=== PATIENT | male | born 1955 | race African-American/Black ===

== ENCOUNTER 2016-08-15 00:08 | Emergency (ER) | payer OTHER ==
[~2016-08-15] VITALS: Ht 185.4 cm; Wt 108.9 kg
--- NOTE | ~2016-08-15 | EKG ---
[place] [address] [facility] [place] [address] ELECTROCARDIOGRAM REPORT Name: CODI JACKSONDENISSE Room #: DEP Kasey#: [id number] Admission: 08/15/16 Attend Phys: Discharge: 08/15/16 Date of : 57 Report #: [id number] THIS REPORT FOR: //name// [facility] ED Test Date: 2016-08-15 Test Time: 01:05:32 Pat Name: DEWAYNE JACKSON Department: Room: Gender: M Title Examiner: JOSE ALFREDO : 1955 Requested By: Claude Coon Order Number: [id number] MD: Hans Silva Measurements Intervals [place] Rate: 86 P: 50 [place]: 182 QRS: -41 QRSD: 98 T: 78 QT: 393 QTc: 470 Interpretive Statements Sinus rhythm Probable left atrial enlargement RSR' in V1 or V2, right VCD or RVH Inferior infarct, old Borderline ST elevation, anterior leads Compared to ECG 08/24/2014 12:25:09 No significant change was found Electronically Signed On 08-15-2016 14:04:49 CDT by Hans Silva [email or web address] <ELECTRONICALLY SIGNED> By: Hans Silva MD, [facility] 08/15/16 1404 0105 0105 Hans Silva MD, [facility] /EPI
[~2016-08-15 00:08] MED LIST: ACCUNEB SO1.25 MG/1 INH; ADVAIR HFA 230M12 GM; CLONIDINE0.1 PO; COREG6.25 MG PO; FELODIPINE ER10 MG; LISINOPRIL-HCT1 EAC2 PO; METFORMIN HCL500 MG PO; MOBIC15 MG; NEBULIZER MISCELL; PREDNISONE 20 M20 MG PO; PREDNISONE50 MG PO; PROAIR HFA8.5 GM; VENTOLIN HFA 1818 GM INH
[2016-08-15 01:29] LABS: CREATININE 1.1 mg/dL (0.7-1.3)
[2016-08-15 01:42] LABS: ABSOLUTE NEUTROPHILS 4.6 thou/uL (1.4-8.2); BASOPHILS 0.8 % (0.0-2.0); EOSINOPHILS 7.4 % (0.0-3.0); HEMOGLOBIN 13.8 gm/dL (14.0-18.0); LYMPHOCYTES 26.3 % (24.0-44.0); MCHC 34.5 g/dL (28.0-37.0); MCV 84.1 fL (80.0-100.0); MONOCYTES 8.1 % (1.0-8.0); PLATELET COUNT 240 thou/uL (150-400); POLYS 57.4 % (36.0-66.0); RBC 4.75 mil/uL (4.50-6.00); RDW 13.1 % (10.5-14.5)
[2016-08-15 01:43] LABS: MANUAL DIFF NO
[2016-08-15 01:47] LABS: CK-MB MASS 4.4 ng/mL (<0.5-3.6); MAGNESIUM 2.2 mg/dL (1.8-2.4); TOTAL BILIRUBIN 0.4 mg/dL (<0.1-1.0); TOTAL PROTEIN 7.2 g/dL (6.4-8.2); TROPONIN-I 0.05 ng/mL (<0.04-0.07)
[2016-08-15 01:57] LABS: APTT 27.5 Seconds (24.5-32.8); PROTIME 10.3 Seconds (9.3-11.4)
[2016-08-15] MEDS ORDERED: LISINOPRIL20 MG PO (02:05)
[2016-08-15] MEDS ORDERED: PREDNISONE 20 M20 MG PO (02:09)
[2016-08-15] MEDS ORDERED: CLONIDINE0.1 PO (02:09)
[2016-08-15] MEDS ORDERED: VENTOLIN HFA 1818 GM INH (02:09)
[2016-08-15 02:31] VITALS: BP 189/110
== END 2016-08-15 02:32 | disposition home or self-care (01) ==
LOC: ER 00:08
PROVIDERS: Emergency Medicine
DX: J45.901 Unspecified asthma with (acute) exacerbation (principal); I10 Essential (primary) hypertension; E11.9 Type 2 diabetes mellitus without complications; E78.00 Pure hypercholesterolemia, unspecified; I25.2 Old myocardial infarction; F17.210 Nicotine dependence, cigarettes, uncomplicated

== ENCOUNTER 2018-03-03 04:53 | Emergency (ER) | payer OTHER ==
[~2018-03-03] VITALS: Ht 193 cm; Wt 90.7 kg
[~2018-03-03 04:53] MED LIST changes: +LISINOPRIL20 MG PO
[2018-03-03] MEDS ORDERED: NORCO 5-325 TA1 EACH PO (06:20)
[2018-03-03] MEDS ORDERED: KEFLEX500 M1 PO (06:20)
[2018-03-03] MEDS ORDERED: VENTOLIN HFA INH8 GM INH (06:20)
[2018-03-03 06:29] VITALS: BP 188/101
== END 2018-03-03 06:30 | disposition home or self-care (01) ==
LOC: ER 04:53
DX: R04.0 Epistaxis (principal); I10 Essential (primary) hypertension; F17.210 Nicotine dependence, cigarettes, uncomplicated; E11.9 Type 2 diabetes mellitus without complications; E78.00 Pure hypercholesterolemia, unspecified; J45.909 Unspecified asthma, uncomplicated

== ENCOUNTER 2018-03-12 04:20 | Inpatient (IN) | payer OTHER ==
[2018-03-12] VITALS (8 sets, daily range): BP systolic 153–228; BP diastolic 99–134
[~2018-03-12] VITALS: Ht 185.4 cm; Wt 117.9 kg
--- NOTE | ~2018-03-12 | HC ---
[facility] [place] [address] CONSULTATION Name: DEWAYNE JACKSON Room #: 355-P [facility] IN ..#: [id number] Admission: 03/12/18 Attend Phys: Neftali Sethi MD Discharge: 03/14/18 Date of : 57 Report #: [id number] THIS REPORT FOR: //name// CC: Neftali Sethi DATE OF SERVICE: 03/14/2018 REASON FOR PRESENTATION: Shortness of breath. HISTORY OF PRESENT ILLNESS: A 63-year-old with past medical history of hypertension for the last 4 years. He tells me that his blood pressure has never been under control. He presented with shortness of breath, dyspnea on exertion. He tells me that his blood pressure has been on the high side most of the time; however, in the last month or so, he started to notice that his blood pressure readings are in the 200 range. He was admitted for further evaluation and management. He is not aware of any previous kidney problems. He is not aware of retinal bleed in the past. He is known to have hypertension, diabetes mellitus. He tells me that he had a mild heart attack. On presentation to the Emergency Room, his blood pressure was in the 200 range. He is not strict with his salt intake. PAST MEDICAL HISTORY; 1. Hypertension. 2. Hyperlipidemia. 3. Asthma. 4. Type 2 diabetes. MEDICATIONS: 1. Metformin. 2. Felodipine. 3. Lisinopril. ALLERGIES: None. REVIEW OF SYSTEMS: GENERAL: No fever or chills. CARDIOVASCULAR: Significant for dyspnea on exertion. PULMONARY: No cough or hemoptysis. GASTROINTESTINAL: No nausea or vomiting. GENITOURINARY: No frequency, no urgency. MUSCULOSKELETAL: No back pain. SOCIAL HISTORY: He continues to smoke. No drug or alcohol abuse. FAMILY HISTORY: Significant for hypertension. [facility] [address] [place] [address] CONSULTATION Name: DEWAYNE JACKSON Room #: 355-P [facility] IN [facility]#: [id number] Admission: 03/12/18 Attend Phys: Neftali Sethi MD Discharge: 03/14/18 Date of : 57 Report #: [id number] PHYSICAL EXAMINATION: GENERAL: Alert, oriented, pleasant. VITAL SIGNS: Blood pressure is 150/118. HEAD AND NECK: No jugular venous distention. CHEST: No crackles. CARDIOVASCULAR: No rub. ABDOMEN: Soft, nontender. LOWER EXTREMITIES: No edema. LABORATORY VALUES: Reviewed. Hemoglobin 12.6. Potassium was 3.3 yesterday and it is up to 3.7, creatinine is 1.7. No urine studies. DIAGNOSTIC DATA: Chest x-ray, borderline pulmonary venous congestions. CTA chest with no acute abnormality. ASSESSMENT AND PLAN: Hypertensive urgency. This is mainly related to salt intake. I agree with the changes in the medication to include an angiotensin converting enzyme inhibitor, thiazide diuretics and Aldactone. Expect this regimen to suffice for his blood pressure. We will send basic urinary studies. Salt restriction is of paramount to get his blood pressure under control. I doubt that he has a secondary hypertension. However, we will evaluate his Doppler of the renal arteries. We will also send renin aldosterone. I do not suspect this to be a pheochromocytoma. By: 1141 1634 Morris Mitchell MD /nt
[~2018-03-12 04:20] MED LIST changes: +KEFLEX500 M1 PO; +NORCO 5-325 TA1 EACH PO; +VENTOLIN HFA INH8 GM INH
[2018-03-12 04:57] LABS: ABSOLUTE NEUTROPHILS 8.6 thou/uL (1.4-8.2); BASOPHILS 0.7 % (0.0-2.0); EOSINOPHILS 2.5 % (0.0-3.0); HEMATOCRIT 38.6 % (42.0-52.0); HEMOGLOBIN 12.9 gm/dL (14.0-18.0); LYMPHOCYTES 9.6 % (24.0-44.0); MCH 28.1 pg (26.0-34.0); MCHC 33.5 g/dL (28.0-37.0); MCV 83.9 fL (80.0-100.0); MONOCYTES 5.2 % (1.0-8.0); PLATELET COUNT 274 thou/uL (150-400); RDW 13.9 % (10.5-14.5); WBC 10.5 thou/uL (4.0-11.0)
[2018-03-12 05:00] LABS: CALCIUM 9.3 mg/dL (8.5-10.1); CREATININE 1.2 mg/dL (0.7-1.3); POTASSIUM 3.7 mmol/L (3.5-5.1)
[2018-03-12 05:08] LABS: TROPONIN-I 0.2 ng/mL (<0.06)
--- NOTE | 2018-03-12 09:07 | NUR ---
PATIEN ADMITTED AT THIS TIME WITH HEART PALPITATION. HE IS ALERT ORIENTED X4. DENIES PAIN AT THIS TIME. RESP. NON LABORED. WILL CONT WITH PLAN OF CARE.
[2018-03-13] VITALS (7 sets, daily range): BP systolic 152–189; BP diastolic 102–134
--- NOTE | 2018-03-13 03:04 | NUR ---
P A&oX4, ABLE TO MAKE NEEDS KNOWN, AMBULATES WIH STEADY GAIT. PLEASANT AND COOERAIVE WITH NURSING CHRISTOPH. CONTINUES TO BE HYPERTENSIVE, MEDICATED PER PRN ORDERS WITH SLIGHT IMPROVEMENT. PT DENIES PAIN, DISCOMFORT, SOA, N/V. RESTING WELL THROUGHOUT THE NOC. REMAINS ON TELE MONITORING. WILL CONTINUE TO MONITOR PT.
[2018-03-13 05:32] LABS: CALCIUM 9.1 mg/dL (8.5-10.1); CREATININE 1.1 mg/dL (0.7-1.3); POTASSIUM 3.3 mmol/L (3.5-5.1)
[2018-03-13 05:36] LABS: HEMATOCRIT 38.1 % (42.0-52.0); HEMOGLOBIN 12.6 gm/dL (14.0-18.0); MCH 27.9 pg (26.0-34.0); MCHC 33.1 g/dL (28.0-37.0); MCV 84.2 fL (80.0-100.0); RBC 4.53 mil/uL (4.50-6.00); WBC 7.8 thou/uL (4.0-11.0)
--- NOTE | 2018-03-13 09:40 | 2DMMODE ---
[facility] [address] [place] [address] 2 D/M-MODE ECHOCARDIOGRAM Name: DEWAYNE JACKSON Room #: 355-P ADM IN ..#: [id number] Admission: 03/12/18 Attend Phys: Neftali Sethi MD Discharge: Date of : 57 Date of Service: 03/13/18 0939 Report #: [id number] THIS REPORT FOR: //name// APPROVED REPORT Study performed: 03/13/2018 07:35:46 EXAM: Comprehensive 2D, Doppler, and color-flow Echocardiogram Patient Location: Bedside Room #: 355 Status: routine BSA: 2.41 HR: 74 bpm BP: 154/102 mmHg Rhythm: NSR/PVCs Other Information Study Quality: Good Indications CHF, short of breath, palpitations, HTN urgency. Hx: HTN, DM, HLP, tob 2D Dimensions RVDd: 40.79 mm IVSd: 13.82 (7-11mm) LVOT Diam: 22.57 (18-24mm) LVDd: 54.80 mm PWd: 14.77 (7-11mm) Ascending Ao: 42.13 (22-36mm) LVDs: 43.22 (25-40mm) Aortic Root: 37.06 mm Volumes Left Atrial Volume (Systole) Single Plane 4CH: 91.49 mL Single Plane 2CH: 95.89 mL LA ESV Index: 41.00 mL/m2 Aortic Valve AoV Peak Primo.: 1.53 m/s AO Peak Gr.: 9.34 mmHg LVOT Max P.15 mmHg LVOT Max V: 1.13 m/s SEPIDEH Vmax: 2.97 cm2 Mitral Valve E/A Ratio: 1.2 MV Decel. Time: 147.94 ms [facility] [place] [address] [place] [address] 2 D/M-MODE ECHOCARDIOGRAM Name: MANUELCODIDENISSE Room #: 355-[facility] IN ..#: [id number] Admission: 03/12/18 Attend Phys: Neftali Sethi MD Discharge: Date of : 57 Date of Service: 03/13/18 0939 Report #: [id number] MV E Max Primo.: 0.97 m/s MV A Primo.: 0.80 m/s MV PHT: 42.90 ms IVRT: 87.66 ms Pulmonary Valve PV Peak Primo.: 1.00 m/s PV Peak Gr.: 3.99 mmHg Pulmonary Vein P Vein S: 0.33 m/s P Vein D: 0.50 m/s P Vein S/D Ratio: 0.66 Tricuspid Valve TR Peak Primo.: 2.98 m/s RAP Estimate: 5.00 mmHg TR Peak Gr.: 35.42 mmHg PA Pressure: 40.00 mmHg Left Ventricle The left ventricle is normal size. Moderate concentric left ventricular hypertrophy. Left ventricular systolic function is low-normal. LVEF is 50%. Moderate diastolic dysfunction is present (pseudonormal filling). Right Ventricle The right ventricle is normal size. The right ventricular systolic function is normal. Atria Left atrium is moderately dilated. Right atrium is mildly dilated. Aortic Valve Aortic valve is minimally calcified. Mild aortic regurgitation. There is no aortic valvular stenosis. Mitral Valve The mitral valve is normal in structure. Mild mitral regurgitation. Tricuspid Valve The tricuspid valve is normal in structure. Mild tricuspid regurgitation. Estimated PAP is 40mmHg. Pulmonic Valve The pulmonary valve is normal in structure. Trace pulmonic [facility] [address] [place] [address] 2 D/M-MODE ECHOCARDIOGRAM Name: DEWAYNE JACKSON Room #: 355-P [facility] IN ..#: [id number] Admission: 03/12/18 Attend Phys: Neftali Sethi MD Discharge: Date of : 57 Date of Service: 03/13/18 0939 Report #: [id number] regurgitation. Great Vessels The aortic root is normal in size. Ascending aorta is dilated at 4.2cm. IVC is normal in size and collapses >50% with inspiration. Pericardium There is no pericardial effusion. <Conclusion> The left ventricle is normal size. Moderate concentric left ventricular hypertrophy. Left ventricular systolic function is low-normal. Moderate diastolic dysfunction is present (pseudonormal filling). The right ventricle is normal size. Left atrium is moderately dilated. Mild aortic regurgitation. Mild mitral regurgitation. Mild tricuspid regurgitation. Estimated PAP is 40mmHg. Ascending aorta is dilated at 4.2cm. <ELECTRONICALLY SIGNED> By: Christopher Sheikh MD 03/13/18938 8 8 Christopher Sheikh MD /INF
--- NOTE | 2018-03-13 11:11 | EKG ---
[address] [place] [address] ELECTROCARDIOGRAM REPORT Name: DEWAYNE JACKSON Room #: 355-P ADM IN M.R.#: [id number] Admission: 03/12/18 Attend Phys: Neftali Sethi MD Discharge: Date of : 57 Report #: [id number] THIS REPORT FOR: //name// [facility] ED Test Date: 2018-03-12 Test Time: 04:22:34 Pat Name: DEWAYNE JACKSON Department: Room: 355 Gender: M Distillery Worker General: ANA PAULA : 1955 Requested By: Marc Amor Order Number: [id number] MD: Rishi Cedillo Measurements Intervals [place] Rate: 106 P: 49 [place]: 186 QRS: -28 QRSD: 91 T: 84 QT: 336 QTc: 447 Interpretive Statements Sinus tachycardia Ventricular premature complex Left ventricular hypertrophy Inferior infarct, old Baseline wander in lead(s) V1 Compared to ECG 08/15/2016 01:05:32 Ventricular premature complex(es) now present Left ventricular hypertrophy now present Sinus rhythm no longer present Right ventricular hypertrophy no longer present ST (T wave) deviation no longer present Myocardial infarct finding still present Electronically Signed On 03-13-2018 11:10:49 PLANT TENDER by Rishi Cedillo [email or web address] <ELECTRONICALLY SIGNED> By: Rishi Cedillo MD 03/13/18 1110 1 1 Rishi Cedillo MD /EPI
--- NOTE | 2018-03-13 11:15 | EKG ---
[address] [address] ELECTROCARDIOGRAM REPORT Name: DEWAYNE JACKSON Room #: 355-P ADM IN M.R.#: [id number] Admission: 03/12/18 Attend Phys: Neftali Sethi MD Discharge: Date of : 57 Report #: [id number] THIS REPORT FOR: //name// [facility] Test Date: 2018-03-12 Test Time: 09:34:21 Pat Name: DEWAYNE JACKSON Department: Room: 355 P Gender: M Websphere Administrator: LORETA : 1955 Requested By: Neftali Sethi Order Number: [id number] MD: Rishi Cedillo Measurements Intervals [place] Rate: 85 P: 44 PA: 192 QRS: -37 QRSD: 92 T: 86 QT: 367 QTc: 437 Interpretive Statements Sinus rhythm Frequent ventricular premature complexes Left ventricular hypertrophy with secondary t wave abnormalities. Inferior infarct, old Baseline wander in lead(s) I,III,aVL Compared to ECG 08/15/2016 01:05:32 Electronically Signed On 03-13-2018 11:15:35 DIMENSION WAREHOUSE SUPERVISOR by Rishi Cedillo [email or web address] <ELECTRONICALLY SIGNED> By: Rishi Cedillo MD 03/13/18 1115 0934 0934 Rishi Cedillo MD /EPI
--- NOTE | 2018-03-13 17:29 | NUR ---
PT DENIES CHEST PAIN OR SOA..BP REMAINS HIGH AND PRN AND SCHEDULED MEDS GIVEN PER EMAR...
[2018-03-14 03:36] VITALS: BP 168/115
[2018-03-14 05:49] LABS: CALCIUM 9.1 mg/dL (8.5-10.1); CREATININE 1.3 mg/dL (0.7-1.3); POTASSIUM 3.7 mmol/L (3.5-5.1)
[2018-03-14 07:15] VITALS: BP 152/118
--- NOTE | 2018-03-14 08:11 | NUR ---
PATIENT IS PROGRESSING SLOWLY IN CARE PLAN. VITAL SIGNS STABLE WITH PATIENT HAVING NO COMPLAINTS OF PAIN OR NAUSEA. PATIENT REMAINED FULLY ORIENTED THROUGHOUT SHIFT AND WAS ABLE TO CALL APPROPRIATELY FOR NEEDS. BLOOD PRESSURE REMAINED HIGH AND WAS TREATED WITH PRN MEDICATIONS TO REASONABLE AFFECT. UP AD ARTI INCIDENT FREE, PATIENT WAS ABLE TO AMBULATE AROUND THE ROOM WITHOUT INCIDENT AND APPEARED STRONG AND BALANCED IN GAIT. PATIENT IS ANXIOUS FOR DISCHARGE. CONTINUE PLAN OF CARE.
--- NOTE | 2018-03-14 09:18 | NUR ---
care of pt assumed this am @ ~ 0700. pt awake, sitting in bed reading messages on his phone. pt verbalized his desire to go home today due to the fact that it is [place]. He states that his son is coming up from [place] today to celebrate [place]. pt informed of renal doctor consult w/ US Renal Doppler scheduled for tomorrow 03/05.
[2018-03-14 12:37] LABS: URINE BILIRUBIN NEGATIVE (Negative); URINE BLOOD NEGATIVE (Negative); URINE CLARITY CLEAR; URINE COLOR YELLOW; URINE GLUCOSE-RANDOM* NEGATIVE (Negative); URINE KETONES NEGATIVE (Negative); URINE LEUKOCYTES NEGATIVE (Negative); URINE NITRITE NEGATIVE (Negative); URINE PROTEIN (DIPSTICK) NEGATIVE (Negative); URINE UROBILINOGEN 0.2 E.U./dl (0.2-1.0)
[2018-03-14 12:48] LABS: URINE CREATININE-RANDOM* 251.3 mg/dL; URINE PROTEIN-RANDOM* 22.3 mg/dL (<11.9)
[2018-03-14] MEDS ORDERED: CHLORTHALIDONE25 MG PO (14:22)
[2018-03-14] MEDS ORDERED: SPIRONOLACTONE25 M1 PO (14:22)
[2018-03-14] MEDS ORDERED: COREG6.25 MG PO (14:22)
--- NOTE | 2018-03-14 14:38 | NUR ---
care of pt assumed this am @ ~0700. pt noted to be very hopeful of a discharge today. pt noted his son's arrival from [place] for and his desire to not be in the hospital this holiday. pt has denied any chest pain, soa, palpitations, no n/v/d today. pt w/ a good to great appetite for food and fluids. pt up ad alberto w/ a steady, balanced and coordinated gait. dr. sandoval consulted today, he informed pt of his need to make his health care of his body and number one priority and to stop drinking alcohol, stop smoking, eat health (low salt, lean meats and portion control), follow up w/ pcp and himself and take the medication prescribed to him. pt was informed of all this w/ his and son at . pt verbalized an understanding of all dr. sandoval was requesting of him to help bring his blood pressure under control.
--- NOTE | 2018-03-14 14:53 | NUR ---
attempt to call pt's pharmacy to phone in scripts per CORI Calvillo request. [facility] [address] [place] closed today. 3 scripts given to pt w/ education information. iv access dc'd. tele dc'd. discharge packet gone through w/ pt. pt has collected his own belongings w/ family members at bs.
[2018-03-14 14:56] VITALS: BP 152/118
--- NOTE | 2018-03-15 15:48 | HC ---
[facility] [place] [address] CONSULTATION Name: DEWAYNE JACKSON Room #: 355-[facility] IN ..#: [id number] Admission: 03/12/18 Attend Phys: Neftali Sethi MD Discharge: 03/14/18 Date of : 57 Report #: [id number] THIS REPORT FOR: //name// CC: Neftali Sethi DATE OF SERVICE: 03/12/2018 REASON FOR CONSULTATION: 1. Hypertensive emergency. 2. Elevated troponin. HISTORY OF PRESENT ILLNESS: The patient is a 63-year-old male with history of hypertension, hyperlipidemia, asthma, diabetes and tobacco abuse who presents with symptoms of progressive worsening shortness of breath that has been going on for about a month. He has been meeting with his primary care who has been trying to optimize his blood pressures recently. He has noted some exertional dyspnea, especially when climbing stairs, but he denies any chest pain or chest tightness. He denies any PND or orthopnea. He denies presyncope or syncope. Today, he felt like his shortness of breath is getting worse, came into the Emergency Room and his blood pressure was 228/134. He received several medications and his blood pressure started to lower and his breathing improved. PAST MEDICAL HISTORY: As mentioned above. SOCIAL HISTORY: He quit smoking on Tuesday. FAMILY HISTORY: Noncontributory. ALLERGIES: None. MEDICATIONS: At home include lisinopril, Norvasc and metformin. REVIEW OF SYSTEMS: A 12-point review of systems was performed and was negative other than what I mentioned above. PHYSICAL EXAMINATION: VITAL SIGNS: Temperature 36.9, pulse 80, respiratory rate 24, blood pressure 167/110, sats 97%. GENERAL: No acute distress. HEENT: Oropharynx is clear. NECK: Supple, no thyromegaly. HEART: Regular rate and rhythm with no murmurs, rubs, or gallops. LUNGS: Clear to auscultation bilaterally. ABDOMEN: Soft, nontender, nondistended. EXTREMITIES: No clubbing, cyanosis, edema. [facility] [address] [place] [address] CONSULTATION Name: LELIA JACKSONBUNNY Room #: 355-P [facility] IN M.R.#: [id number] Admission: 03/12/18 Attend Phys: Neftali Sethi MD Discharge: 03/14/18 Date of : 57 Report #: [id number] NEUROLOGIC: Cranial nerves 2-12 are intact. LABORATORY DATA: A 12-lead EKG shows normal sinus rhythm with LVH and no ischemic changes. CBC: White count is 10, hemoglobin 12.9, platelets 274. D-dimer elevated at 1.5. Sodium 143, potassium 3.7, BUN 14, creatinine 1.2, glucose 134. Troponin is 0.2. ProBNP is 929. Chest x-ray shows no acute process. CT chest was negative for any acute process. ASSESSMENT AND PLAN: 1. Hypertensive emergency. 2. Elevated troponin secondary to hypertensive emergency. 3. Poorly controlled hypertension. 4. Diabetes. 5. Tobacco abuse. In summary, the patient is a 63-year-old presenting with hypertensive emergency. His elevated troponin is not due to acute coronary syndrome and it is likely related to his poorly controlled blood pressure. We will optimize his blood pressure. I will increase his lisinopril to 40 daily. I will start him on hydrochlorothiazide. He was also started on carvedilol and we will continue with his Norvasc as well. We will order an echocardiogram for the morning. <ELECTRONICALLY SIGNED> By: Rishi Cedillo MD 03/15/18 1548 1241 Rishi Cedillo MD /nt
[2018-03-18 19:08] LABS: METANEPHRINE-PL 26 pg/mL (0-62); NORMETANEPHRINE - PL 298 pg/mL (0-145)
== END 2018-03-14 15:36 | disposition home or self-care (01) | DRG 304 ==
LOC: ER 04:20 → EROBS 06:26 → 3W 06:26
PROVIDERS: Emergency Medicine; Hospitalist; Internal Medicine; Nurse Practitioner Family; ADMIT Hospitalist
DX: I16.1 Hypertensive emergency (principal); E43 Unspecified severe protein-calorie malnutrition; I10 Essential (primary) hypertension; E78.00 Pure hypercholesterolemia, unspecified; E78.5 Hyperlipidemia, unspecified; E11.9 Type 2 diabetes mellitus without complications; I08.3 Combined rheumatic disorders of mitral, aortic and tricuspid valves; F17.210 Nicotine dependence, cigarettes, uncomplicated; I16.0 Hypertensive urgency; J45.909 Unspecified asthma, uncomplicated; I25.2 Old myocardial infarction; Z79.84 Long term (current) use of oral hypoglycemic drugs; Z82.49 Family history of ischemic heart disease and other diseases of the circulatory system
CPT/HCPCS: 10879

== ENCOUNTER → 2018-04-06 | Outpatient (CLI) | payer OTHER ==
[~2018-04-06] MED LIST changes: +CHLORTHALIDONE25 MG PO; +SPIRONOLACTONE25 M1 PO
== END ==
LOC: NUC 07:12
DX: R06.09 Other forms of dyspnea (principal); I10 Essential (primary) hypertension; I25.10 Atherosclerotic heart disease of native coronary artery without angina pectoris; E78.5 Hyperlipidemia, unspecified; E11.9 Type 2 diabetes mellitus without complications; Z87.891 Personal history of nicotine dependence

== ENCOUNTER 2018-08-06 23:45 | Emergency (ER) | payer OTHER ==
[~2018-08-06] VITALS: Ht 185.4 cm; Wt 112.0 kg
[2018-08-07 00:21] LABS: ABSOLUTE NEUTROPHILS 6.3 thou/uL (1.4-8.2); BASOPHILS 0.5 % (0.0-2.0); EOSINOPHILS 7.2 % (0.0-3.0); HEMATOCRIT 39.9 % (42.0-52.0); LYMPHOCYTES 21.4 % (24.0-44.0); MCH 27.8 pg (26.0-34.0); MCHC 32.6 g/dL (28.0-37.0); MONOCYTES 8.4 % (1.0-8.0); PLATELET COUNT 278 thou/uL (150-400); POLYS 62.5 % (36.0-66.0); RDW 14.4 % (10.5-14.5)
[2018-08-07 00:32] LABS: ANION GAP 9 mmol/L (7-16); BUN 29 mg/dL (7-18); CALCIUM 9.3 mg/dL (8.5-10.1); CHLORIDE 107 mmol/L (98-107); CO2 28 mmol/L (21-32); CREATININE 1.9 mg/dL (0.7-1.3); GLUCOSE 128 mg/dL (74-106); POTASSIUM 3.5 mmol/L (3.5-5.1); SODIUM 144 mmol/L (136-145)
[2018-08-07 00:43] LABS: ALBUMIN 3.9 g/dL (3.4-5.0); SGOT 22 U/L (15-37); SGPT 24 U/L (30-65); TOTAL BILIRUBIN 0.2 mg/dL (<0.1-1.0); TOTAL PROTEIN 7.6 g/dL (6.4-8.2); TROPONIN-I <0.06 ng/mL (<0.06)
[2018-08-07] MEDS ORDERED: PREDNISONE 20 M20 MG PO (02:08)
[2018-08-07] MEDS ORDERED: NEBULIZER MISCELL (02:08)
[2018-08-07] MEDS ORDERED: VENTOLIN HFA 1818 GM INH (02:08)
[2018-08-07 02:11] VITALS: BP 123/85
[2018-08-07] MEDS ORDERED: FLOVENT HFA 4444 MCG INH (02:12)
--- NOTE | 2018-08-07 08:25 | EKG ---
[address] [address] ELECTROCARDIOGRAM REPORT Name: DEWAYNE JACKSON Room #: DEP [place]#: [id number] ������������������ Admission: 08/06/18 ������������������ Attend Phys: Discharge: 08/07/18 ������������������ Date of : 57 Report #: [id number] ����������������������������������������������������������������� [id number] THIS REPORT FOR: //name// [facility] ED Test Date: 2018-08-07 Test Time: 00:52:46 Pat Name: DEWAYNE JACKSON Department: Room: Gender: M Kiln Burner: : 1955 Requested By: Claude Coon Order Number: [id number] MD: Rishi Cedillo Measurements Intervals [place] Rate: 82 P: 41 [place]: 188 QRS: -58 QRSD: 103 T: 96 QT: 386 QTc: 451 Interpretive Statements Sinus rhythm Ventricular premature complex Inferior infarct, old Baseline wander in lead(s) V5 Compared to ECG 03/12/2018 09:34:21 Left ventricular hypertrophy no longer present T-wave abnormality no longer present Myocardial infarct finding still present Electronically Signed On 08-07-2018 8:25:12 CDT by Rishi Cedillo [email or web address] ��������������������������������������������� <ELECTRONICALLY SIGNED> ���������������������������������������� By: Rishi Cedillo MD ��������������������������������������������� 08/07/18 0825 0052 0052 Rishi Cedillo MD /EPI
== END 2018-08-07 02:13 | disposition home or self-care (01) ==
LOC: ER 23:45
PROVIDERS: Emergency Medicine
DX: J45.901 Unspecified asthma with (acute) exacerbation (principal); R79.89 Other specified abnormal findings of blood chemistry; E11.9 Type 2 diabetes mellitus without complications; E78.5 Hyperlipidemia, unspecified; I25.2 Old myocardial infarction; I10 Essential (primary) hypertension; F17.210 Nicotine dependence, cigarettes, uncomplicated

== ENCOUNTER 2020-08-14 13:20 | Emergency (ER) | payer OTHER ==
[~2020-08-14] VITALS: Ht 185.4 cm; Wt 111.6 kg
[~2020-08-14 13:20] MED LIST changes: +FLOVENT HFA 4444 MCG INH
[2020-08-14] MEDS ORDERED: ALBUTEROL2.5 MG/3 M INH ×2 (16:23→16:39)
[2020-08-14] MEDS ORDERED: PREDNISONE 20 M20 MG PO ×2 (16:23→16:39)
[2020-08-14] MEDS ORDERED: ZPAK PO ×2 (16:23→16:39)
[2020-08-14 16:30] VITALS: BP 111/76
--- NOTE | 2020-08-15 06:51 | EKG ---
[place] [address] [facility] [place] [address] ELECTROCARDIOGRAM REPORT Name: CODI JACKSONDENISSE Room #: [facility] [place] [place]#: [id number] Admission: 08/14/20 Attend Phys: Discharge: 08/14/20 Date of : 57 Report #: [id number] [facility] ED Test Date: 2020-08-14 Test Time: 13:38:18 Pat Name: DEWAYNE JACKSON Department: Room: Gender: M Diet Technician Registered: ALFONSO : 1955 Requested By: Susana Keene Order Number: [id number] MD: Carlos Tirado Measurements Intervals [place] Rate: 78 P: -1 ID: 139 QRS: -53 QRSD: 100 T: 90 QT: 380 QTc: 433 Interpretive Statements Sinus rhythm Abnormal R-wave progression, early transition Inferior infarct, old Compared to ECG 08/07/2018 00:52:46 Ventricular premature complex(es) no longer present Myocardial infarct finding still present Electronically Signed On 08-15-2020 6:51:31 CDT by Carlos Tirado [email or web address] <ELECTRONICALLY SIGNED> By: Carlos Tirado MD, [facility] 08/15/20 0651 1338 1338 Carlos Tirado MD, [facility]
== END 2020-08-14 16:30 | disposition home or self-care (01) ==
LOC: ER 13:20
DX: J44.1 Chronic obstructive pulmonary disease with (acute) exacerbation (principal); E11.9 Type 2 diabetes mellitus without complications; E78.5 Hyperlipidemia, unspecified; I25.2 Old myocardial infarction; I10 Essential (primary) hypertension; F17.210 Nicotine dependence, cigarettes, uncomplicated; Z79.899 Other long term (current) drug therapy

== ENCOUNTER → 2020-10-17 | Outpatient (CLI) | payer OTHER ==
[~2020-10-17] MED LIST changes: +ALBUTEROL2.5 MG/3 M INH; +ZPAK PO
== END ==
LOC: CAT 11:26
PROVIDERS: ATTEND Internal Medicine Pulmonary Disease
DX: Z12.2 Encounter for screening for malignant neoplasm of respiratory organs (principal); Z87.891 Personal history of nicotine dependence

== ENCOUNTER → 2021-01-08 | Outpatient (CLI) | payer MEDICARE | LOC: SJCVC 11:06 | PROVIDERS: ATTEND Internal Medicine Cardiovascular Disease | DX: R94.31 Abnormal electrocardiogram [ECG] [EKG] (principal); I10 Essential (primary) hypertension; E78.00 Pure hypercholesterolemia, unspecified; J44.9 Chronic obstructive pulmonary disease, unspecified; F17.200 Nicotine dependence, unspecified, uncomplicated; Z79.82 Long term (current) use of aspirin; Z79.899 Other long term (current) drug therapy; Z82.49 Family history of ischemic heart disease and other diseases of the circulatory system; Z72.89 Other problems related to lifestyle ==